=== PATIENT | female | born 1950 | race Caucasian/White ===

== ENCOUNTER 2021-05-01 14:59 | Emergency (ER) | payer OTHER, MEDICARE, MEDICAID ==
[2021-05-01] MEDS ORDERED: traMADol HCl 50 MG TAB ONE (15:57)
== END 2021-05-01 17:05 | disposition home or self-care (01) ==
LOC: CSHERS 14:59
DX: S51.811A Laceration without foreign body of right forearm, initial encounter (principal); S63.509A Unspecified sprain of unspecified wrist, initial encounter; S20.219A Contusion of unspecified front wall of thorax, initial encounter; W01.10XA Fall on same level from slipping, tripping and stumbling with subsequent striking against unspecified object, initial encounter
CPT/HCPCS: 70450; 72125; 93005; 93010